=== PATIENT | female | born 1970 ===

== ENCOUNTER 2020-11-24 18:35 | Emergency (ER) | payer OTHER, SELFPAY ==
--- NOTE | 2020-11-24 20:51 | RAD REPORT ---
EXAM DESCRIPTION: Harshal Saenz Left11/24/2020 8:39 pm CLINICAL HISTORY: Left leg pain status post injury FINDINGS: No fracture is seen
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
[2020-11-25 01:28] VITALS: TEMP 98.9
[2020-11-25 01:30] VITALS: BP 160/93; O2SAT 100
== END 2020-11-24 21:48 | disposition home or self-care (01) ==
LOC: ER 18:35
DX: S80.12XA Contusion of left lower leg, initial encounter (principal); V49.50XA Passenger injured in collision with unspecified motor vehicles in traffic accident, initial encounter; I10 Essential (primary) hypertension
CPT/HCPCS: 99283